=== PATIENT | male | born 1945 | race African-American/Black ===

== ENCOUNTER 2017-01-20 18:45 | Emergency (ER) | payer MEDICAID ==
[~2017-01-20] VITALS: Ht 160 cm; Wt 55.0 kg
[2017-01-21 02:01] VITALS: BP 120/70
== END 2017-01-21 02:01 | disposition home or self-care (01) ==
LOC: ER 18:45
DX: L02.214 Cutaneous abscess of groin (principal); I10 Essential (primary) hypertension
CPT/HCPCS: 99283